=== PATIENT | female | born 1960 | race Caucasian/White ===

== ENCOUNTER 2018-08-27 22:02 | Emergency (ER) | payer MEDICAID ==
[~2018-08-27] VITALS: Ht 149.9 cm; Wt 63.5 kg
[2018-08-27 22:14] VITALS: BP 126/76
[2018-08-27] MEDS ORDERED: ACCU-CHEK COMFORT CURVE STRIP VI ONE (22:30)
[2018-08-27] MEDS ORDERED: SODIUM CHLORIDE 0.9% 500 ML IV ONE (22:30)
[2018-08-27 22:42] LABS: Basophils # (auto) 0 uL; Basophils % (auto) 0.7 % (0.0-2.0); Eosinophils # (auto) 0.3 uL; Eosinophils % (auto) 6.1 % (0.0-7.0); Hematocrit 41.1 % (36.0-46.0); Hemoglobin 13.7 g/dL (12.2-16.2); Lymphocytes # (auto) 1.6 uL; Lymphocytes % (auto) 33.8 % (10.0-50.0); Mean Corpuscular Hemoglobin 27.7 pg (28.0-32.0); Mean Corpuscular Hgb Conc. 33.3 g/dL (32.0-36.0); Mean Corpuscular Volume 83.3 fL (80.0-100.0); Monocytes # (auto) 0.3 uL; Monocytes % (auto) 7.1 % (0.0-12.0); Neutrophils # (auto) 2.5 uL; Neutrophils % (auto) 52.3 % (37.0-80.0); Platelet Count (auto) 203 10^3/uL (140-450); Red Blood Cells 4.94 10^6/uL (4.0-5.20); Red Cell Distribution Width 14.1 % (11.8-14.3); White Blood Cell 4.7 10^3/uL (4.4-10.8)
[2018-08-27 23:02] LABS: Urine Bacteria FEW /hpf (None Seen); Urine Blood Negative /uL (Negative); Urine Specific Gravity 1.008 (1.001-1.035); Urine WBC 1 /hpf (0 - 5)
[2018-08-27 23:05] LABS: Alanine Aminotransferase 26 U/L (13-56); Albumin 3.7 g/dL (3.4-5.0); Anion Gap 6 (5-15); Aspartate Aminotransferase 25 U/L (15-37); BUN/Creatinine Ratio 25.5; Blood Urea Nitrogen 14 mg/dL (7-18); Calcium 9.3 mg/dL (8.5-10.1); Carbon Dioxide 27 mmol/L (21-32); Chloride 108 mmol/L (98-107); GFR African American 145 mL/min; GFR Non-African American 120 mL/min; Glucose 92 mg/dL (74-106); Potassium 4.1 mmol/L (3.5-5.1); Sodium 141 mmol/L (136-145)
[2018-08-27 23:07] LABS: Alkaline Phosphatase 169 U/L (45-117); Bilirubin, Total 0.1 mg/dL (0.2-1.0); Total Protein 7.4 g/dL (6.4-8.2)
[2018-08-28] MEDS ORDERED: LIDOCAINE W/ EPINEPHRINE 1 % INJ 30ML ONE (07:23)
[2018-08-28] MEDS ORDERED: BUPIVACAINE 0.25% INJ 50ML VIAL ONE (07:23)
[2018-08-28] MEDS ORDERED: MANNITOL FTV 25% 12.5 GM/50 ML 50 ML IV ONE (07:23)
== END 2018-08-28 03:17 | disposition left against medical advice (07) ==
LOC: EDBD 22:02 → ER 22:09
DX: R55 Syncope and collapse (principal); R56.9 Unspecified convulsions; R51 Headache; E11.9 Type 2 diabetes mellitus without complications; Z86.73 Personal history of transient ischemic attack (TIA), and cerebral infarction without residual deficits
CPT/HCPCS: 36415; 70450; 80053; 81001; 85025; 93005; 94761; 96360; 99284; J2001; J2150; J3490; J7040